=== PATIENT | male | born 1950 | race Caucasian/White ===

== ENCOUNTER 2023-04-02 00:26 | Emergency (ER) | payer MEDICARE, OTHER ==
[~2023-04-02] VITALS: Ht 167.6 cm; Wt 72.1 kg
--- NOTE | 2023-04-02 00:55 | NUR ---
Dr. Awad at bedside for MSE.
[2023-04-02] MEDS ORDERED: OXYCODONE/APAP 5-325 MG TABLET PO ONE (01:00)
[2023-04-02] MEDS ORDERED: OXYCODONE/APAP 5-325 MG TABLET ONE (01:03)
--- NOTE | 2023-04-02 01:13 | NUR ---
Pt out of ER for Xray
--- NOTE | 2023-04-02 01:33 | NUR ---
Pt back to ER from Xray.
[2023-04-02] MEDS ORDERED: HYDR-3980 PO (01:54)
[2023-04-02] MEDS ORDERED: MAGNESIUM HYDROXIDE 30 ML LIQUID UDC ONE (01:58)
[2023-04-02] MEDS ORDERED: MAGNESIUM HYDROXIDE 30 ML LIQUID UDC PO ONE (02:00)
[2023-04-02] MEDS ORDERED: HYDROMORPHONE 2 MG/1 ML DISP.SYRIN ONE (02:03)
[2023-04-02] MEDS ORDERED: ONDANSETRON ODT 4 MG TAB.RAPDIS ONE (02:03)
--- NOTE | 2023-04-02 02:11 | NUR ---
Patient discharged to home in stable condition. Written and verbal after care instructions given. Patient verbalizes understanding of instructions. Stressed follow up or return to ER for worsening s/s. Patient out of ER with steady gait, no acute signs of distress, VSS, all belongings taken, instructed not to drive, to be driven home by daughter via private vehicle.
[2023-04-02 02:12] VITALS: BP 155/72; O2SAT 97
[2023-04-02] MEDS ORDERED: HYDROMORPHONE 1 MG/1 ML DISP.SYRIN IM ONE (02:15)
[2023-04-02] MEDS ORDERED: ONDANSETRON ODT 4 MG TAB.RAPDIS SL ONE (02:15)
== END 2023-04-02 02:12 | disposition home or self-care (01) ==
LOC: ER 00:26
DX: M54.41 Lumbago with sciatica, right side (principal); K56.41 Fecal impaction; Z79.899 Other long term (current) drug therapy
CPT/HCPCS: 99284; 72100; 96372; J1170; A4663; Q0162